=== PATIENT | male | born 1935 | race Caucasian/White ===

== ENCOUNTER 2016-12-17 07:13 | Day surgery (SDC) | payer MEDICARE, OTHER ==
[2016-12-17] VITALS (8 sets, daily range): BP systolic 97–143; BP diastolic 54–72; PULSE 66–76; RESP 16–22; TEMP 97.3–98.7; O2SAT 96–100; Ht 175.3 cm; Wt 80.3 kg
[~2016-12-17] VITALS: Ht 175.3 cm; Wt 80.3 kg
[~2016-12-17 07:13] MED LIST: ASPI325T PO; DOXE10CA2 PO; FISH1CAP59 PO; GABA-338 PO; GLUC-136 PO; LIDOCAINE 1% (10mg/ml) 2ml SDV INJ ONE; LIDOCAINE VISCOUS 2% Oral Soln 15ml UD ONE; LR 1,000 ML IV SCH; MAGN250T39 PO; MELA1TAB16 PO; MULT-669 PO; NAPR220T PO; OMEP-122 PO; PRAM1TAB3 PO; RED600CA6 PO; TEMA30CA PO
--- OUTSIDE RECORDS SUMMARY | 2016-12-17 07:17 | XMS REPORT | Continuity of Care Document ---
Author Author [facility] Organization [facility] Address Unknown Phone Unavailable Support Name Relationship Address Phone MARK PENA MD Caregiver [address] [place] [address] [place] [address] EVIE CHÁVEZ MD Caregiver [address] [place] [address] Unavailable JULIAN FIORE Caregiver [address] [place], [place] [id number] JENELLE PAUL Next Of Kin [address] [place], [place] [id number] Insurance Providers Payer Name Policy Number Subscriber Name Relationship Medicare [id number] Irene Paul 18 Self [place] [id number] Irene Paul 18 Self Advance Directives Directive Response Recorded Date/Time Advanced Directives Type Living Will DPOA for Healthcare 04/07/14 12:30am Ordered Resuscitation Status Full Code 04/06/14 11:09pm Resuscitation Documents on File No 04/07/14 12:30am Chief Complaint and Reason for Visit Chief Complaint 2309-PULMONARY EMBOLISM-IN PT-ROOM 145 Reason for Visit Acute pulmonary embolism History of prostate cancer OA (osteoarthritis) Allergic rhinitis S/P foot surgery GERD (gastroesophageal reflux disease) Problems Medical Problems Problem Onset Date Status Acute pulmonary embolism Unknown Active History of prostate cancer Unknown Resolved OA (osteoarthritis) Unknown Active Allergic rhinitis Unknown Active GERD (gastroesophageal reflux disease) Unknown Active Surgical Problems Problem Onset Date Recorded Date/Time Status S/P foot surgery Unknown 04/07/2014 8:43am Active Medications Medication Dose Route Sig Days/Qty Instructions Order Date Discontinued Date Status Naproxen Sodium 220 Mg PO DAILY 03/29/10 04/09/14 Discontinued [zyrtec ] Tab PO DAILY 03/29/10 Active Aspirin 1 Tab PO DAILY 04/06/14 04/09/14 Discontinued Omeprazole 1 Tab PO BEDTIME 04/06/14 Active Hydrocodone/Acetaminophen 1-2 Tab PO Every 6 Hours PRN PAIN 04/06/14 Active Glucosamine Sulfate 2Kcl 04/06/14 Active Multivitamin 04/06/14 Active Melatonin 04/06/14 Active Red Yeast Rice 04/06/14 Active Enoxaparin Sodium 122 Mg SQ DAILY 5 Days 04/09/14 Active Warfarin Sodium 5 Mg PO DAILY For Pulmonary Emboli 30 Qty 04/09/14 Active Social History Social History Problem Response Recorded Date/Time Smoking Status Never smoker 04/07/2014 12:34am Hx Substance Use No 04/06/2014 8:35pm Hx Alcohol Use No 04/06/2014 8:35pm Has the pt used tobacco in the last 12 months No 04/07/2014 12:34am Hospital Discharge Instructions Instructions: Care Instructions: Reason for Hospitalization: right TKA I was in the hospital because (patient own words): "I HAD A STROKE" Discharge Diet: Regualr Discharge Activity: Walk regularly. Try to walk a little farther each day. This will help prevent many of the complications that are possible after a total joint replacement. This would include things like pneumonia, blood clots and constipation. Follow Up Appointments: [address] Kunz. Please call [phone] to confirm appointment. Patient Instructions: Swelling 1.Elevate operative extremity above the level of your heart if possible. This will facilitate the movement of fluid back into your body. 2.Do not sit for more than 1 hour at a time. 3.Ice can be used as tolderated - do not apply directly to skin and only leave on for 20 minutes at a time. Constipation 1.Take a stool softener (Colace, Sennokot-S,etc) as needed to prevent constipation 2.Wean yourself off narcotics as soon as possible. Blood Clot prevention 1.Take your anticoagulant (Aspirin, Coumadin, Lovenox,etc) as directed Driving 1.May drive in 4 weeks if you had your LEFT extremity operated on. 2.May drive in 6 weeks if you had your RIGHT extremity operated on. Wound/Incision Care: Tegaderm 1.Clear dressing is to remain in place for 2 weeks. 2.Do not pick at it or scrub it while showering. 3.If the dressing begins to pull up, secure it with 4x4 gauze pad and tape. 4.You may shower; however, do not submerge yourself in water until the incision is completely healed. Mepilex 1.Dressing to remain in place until your follow up appointment. 2.If this dressing starts peeling up slightly, it may be reinforced, if it peels excessively, notify your surgeon's office. 3.You may shower with the dressing in place, but do not submerge in water 4.Do not allow water to seep under the dressing, if it should seep under, remove the dressing and notify your surgeon. Notify Physician If: Call your Surgeon if you have: 1.Chest pain, difficulty breathing, fever>100.5 degrees, chills, heart rate >100, confusion, or persistent nausea/vomitting. 2.Severe pain, swelling, redness, or warmth in either of your legs. 3.During office hours, call [phone] 4. After hours, please call [facility] at [phone], and have the operator control room page your Surgeon IN THE EVENT OF AN EMERGENCY, seek medical care at the nearest Emergency Room Condition at time of discharge: Good Care Plan Discharge Patient: Goal: Understand discharge plan Patient Instructions: see patient instructions Patient Instructions: see patient instructions Plan of Care Discharge Date 04/09/14 5:30pm Disposition 01 DISCHARGED HOME, SELF-CARE Prescriptions See Medications Section Functional Status Query Response Date Recorded Physical Hygiene Self April 06, 2014 8:35pm Disabilities None April 06, 2014 11:52pm Devices Used Glasses April 06, 2014 11:52pm Dressing Self April 06, 2014 8:35pm Ambulation Self April 06, 2014 8:35pm Diet Self April 06, 2014 8:35pm Mental Status Alert April 06, 2014 11:11pm Disabilities None April 06, 2014 11:52pm Devices Used Glasses April 06, 2014 11:52pm Physical Hygiene Self April 06, 2014 8:35pm Dressing Self April 06, 2014 8:35pm Ambulation Self April 06, 2014 8:35pm Diet Self April 06, 2014 8:35pm Allergies, Adverse Reactions, Alerts Allergen Type Severity Reaction Status Last Updated No Known Allergies Active 04/06/14 Immunizations Name Given Type Hx Influenza Vaccination Y June 2013 Historical Hx Pneumococcal Vaccination Y 04/08/14 Historical Hx Influenza Vaccination Y June 2013 Historical pneumococcal polysaccharide PPV23 04/08/14 Administered pneumococcal polysaccharide PPV23 04/08/14 Administered Vital Signs Acute Vital Signs Vital Response Date/Time Temperature (Fahrenheit) 97.9 deg F (96.8 - 99.1) Temperature (Calculated Celsius) 36.25774 degrees C (36.0 - 37.3) Temperature Source Oral Pulse Rate (adult) 65 bpm (60 - 100) Respiratory Rate 20 breaths/min (10 - 20) O2 Sat by Pulse Oximetry 94 % (90 - 100) Oxygen Delivery Method Room Air Blood Pressure 136/84 mm Hg Blood Pressure Source Automatic Cuff Height 5 ft 9 in Weight 177 lb Body Mass Index 26.0 kg/m^2 Results Test Source Date Result Interp. Ref. Range Comments Activated Partial Thromboplast Time April 06, 2014 8:40pm 30.1 SEC N 24 -36 Alanine Aminotransferase (ALT/SGPT) April 06, 2014 8:40pm 30 U/L N 21- 72 Albumin April 06, 2014 8:40pm 3.9 G/DL N 3.5-5.0 Albumin/Globulin Ratio April 06, 2014 8:40pm 1.4 RATIO N 1.1-2.2 Alkaline Phosphatase April 06, 2014 8:40pm 107 U/L N 38-126 Anion Gap April 09, 2014 4:40am 10 MEQ/L N 5-15 Aspartate Amino Transf (AST/SGOT) April 06, 2014 8:40pm 22 U/L N 17-59 BUN/Creatinine Ratio April 09, 2014 4:40am 17 RATIO N 6-26 Basophils # (Auto) April 09, 2014 4:40am 0.0 T/MM3 N 0-0.2 Basophils (%) (Auto) April 09, 2014 4:40am 0.1 % N 0-2 Blood Urea Nitrogen April 09, 2014 4:40am 17.0 MG/DL N 9-20 Calcium Level April 09, 2014 4:40am 9.4 MG/DL N 8.4-10.2 Calculated Osmolality April 09, 2014 4:40am 271 MOSM/KG N 261-280 Carbon Dioxide Level April 09, 2014 4:40am 26 MEQ/L N 22-30 Chemistry Specimen Hemolysis April 09, 2014 4:40am < 15 0-25 0-25: No Hemolysis.26-70: Slight Hemolysis - can falsely elevate K and Urine Protein. 71-285: Moderate Hemolysis - can falsely elevate K, Troponin I, CA 19-9, PTH, CSF GLucose, and Urine Protein, and can falsely decrease Phenytoin. 286-999: Gross Hemolysis - can falsely elevate K, Troponin I, CA 19-9, PTH, CSF Glucose, and Urine Protine, and can falsely decrease Phenytoin. Recommend specimen recollection. Chloride Level April 09, 2014 4:40am 104 MEQ/L N 98-107 Creatinine April 09, 2014 4:40am 1.0 MG/DL N 0.8-1.5 D-Dimer April 06, 2014 8:40pm 486 NG/ML H 0-224 <224 NG/ML= PRESUMPTIVE NEGATIVE FOR PE OR DVT>224 NG/ML=ADDITIONAL EVALUATION FOR PE OR DVT RECOMMENDED Eosinophils # (Auto) April 09, 2014 4:40am 0.5 T/MM3 N 0-0.5 Eosinophils (%) (Auto) April 09, 2014 4:40am 6.4 % H 0-4 Globulin April 06, 2014 8:40pm 2.8 G/DL N 2.4-3.6 Glomerular Filtration Rate Calc April 09, 2014 4:40am 73 - Glucose Level April 09, 2014 4:40am 102 MG/DL N 75-110 Hematocrit April 09, 2014 4:40am 40.1 % L 41-53 Hemoglobin April 09, 2014 4:40am 13.6 GM/DL N 13.5-17.5 Icterus Index April 09, 2014 4:40am < 2 0-7 Immature Granulocyte # (Auto) April 09, 2014 4:40am 0.02 T/MM3 N 0.00- 0.03 Immature Granulocyte % (Auto) April 09, 2014 4:40am 0.2 % N 0.0-0.5 Lipase April 06, 2014 8:40pm 51 U/L N 23-300 Lymphocytes # (Auto) April 09, 2014 4:40am 2.5 T/MM3 N 1-4.8 Lymphocytes (%) (Auto) April 09, 2014 4:40am 29.4 % N 23-45 Mean Corpuscular Hemoglobin April 09, 2014 4:40am 30.9 UUG N 26-34 Mean Corpuscular Hemoglobin Concent April 09, 2014 4:40am 33.9 GM/DL N 31-37 Mean Corpuscular Volume April 09, 2014 4:40am 91.1 UM3 N 80-100 Mean Platelet Volume April 09, 2014 4:40am 10.7 UM3 N 9.4-12.4 Monocytes # (Auto) April 09, 2014 4:40am 0.9 T/MM3 H 0-0.8 Monocytes (%) (Auto) April 09, 2014 4:40am 11.0 % H 0-9.0 Neutrophils # (Auto) April 09, 2014 4:40am 4.4 T/MM3 N 1.8-7.7 Neutrophils (%) (Auto) April 09, 2014 4:40am 52.9 % N 33-66 Platelet Count April 09, 2014 4:40am 227 T/MM3 N 130-400 Potassium Level April 09, 2014 4:40am 4.1 MEQ/L N 3.6-5 Prealbumin April 07, 2014 4:41am 15.4 MG/DL L 17.6-36.0 Prothromb Time International Ratio April 09, 2014 4:40am 1.28 H 0.81- 1.09 THERAPUTIC RANGE=2.00-3.00 FOR ANTI-THROMBOSIS THERAPUTIC RANGE=2.50- 3.50 FOR IMPLANTED VALVE RDW Standard Deviation April 09, 2014 4:40am 40.3 FL N 36.9-50.2 Red Blood Count April 09, 2014 4:40am 4.40 M/MM3 L 4.50-5.90 Sodium Level April 09, 2014 4:40am 140 MEQ/L N 134-144 Thyroid Stimulating Hormone (TSH) April 07, 2014 4:41am 1.02 MIU/L N 0.47-4.68 COMMENT mandi Total Bilirubin April 06, 2014 8:40pm 0.90 MG/DL N 0.20-1.30 Total Protein April 06, 2014 8:40pm 6.7 G/DL N 6.3-8.2 Troponin I April 06, 2014 8:40pm < 0.012 ng/ml 0-0.12 Turbidity April 09, 2014 4:40am < 20 0-20 Vitamin B12 Level April 07, 2014 4:41am 355 PG/ML N 239-931 White Blood Count April 09, 2014 4:40am 8.4 T/MM3 N 4.5-11.0 Helicobacter pylori Rapid Urease Gastric Biopsy March 29, 2010 8:20am Name: IRENE PAUL Unit #: [id number] : 1935 Sex: M Loc / Svc: MED DOS: 04/06/14 Signed Report #: [id number] DIAGNOSTIC IMAGING REPORT TYPE OF EXAM: CHEST, PA & LATERAL Dictated By: LEVAR SHEPHERD MD INDICATION: ITS.REASON: F/U pulm edema COMPARISON: 04/05/14 CHEST, PA LATERAL: Normal heart size. Infiltrates and effusions have largely cleared since the prior CXR. No evidence of new infiltrate or pneumothorax. IMPRESSION: Suspected CHF has resolved. . Procedures No known history of procedures. Encounters Encounter Location Date/Time Discharged Inpatient [facility] 04/06/14 11:09pm Recent Diagnosis Acute pulmonary embolism History of prostate cancer OA (osteoarthritis) Allergic rhinitis GERD (gastroesophageal reflux disease)
--- OUTSIDE RECORDS SUMMARY | 2016-12-17 07:17 | XMS REPORT | Continuity of Care Document ---
Author Author [facility] Organization [facility] Address Unknown Phone Unavailable Support Name Relationship Address Phone MARK PENA MD Caregiver [address] [place] [address] [place] [address] JULIAN FIORE Caregiver [address] [place] [address] JENELLE PAUL Next Of Kin [address] [place] [address] Insurance Providers Payer Name Policy Number Subscriber Name Relationship Medicare [id number] Irene Paul 20 Self [place] [id number] Irene Paul 20 Self Advance Directives Directive Response Recorded Date/Time Advanced Directives Type Living Will DPOA for Healthcare 04/10/14 10:48am Resuscitation Documents on File No 04/10/14 10:48am Problems Medical Problems Problem Onset Date Status [...] Active Glucosamine Sulfate 2Kcl 04/06/14 Active Multivitamin PO BEDTIME 04/06/14 Active Melatonin PO BEDTIME 04/06/14 Active Red Yeast Rice 04/06/14 Active Enoxaparin Sodium 122 Mg SQ DAILY 5 Days 04/09/14 Active Warfarin Sodium 5 Mg PO DAILY For Pulmonary Emboli 30 Qty 08/22/14 Active Social History Social History Problem Response Recorded Date/Time Smoking Status Never smoker 04/10/2014 10:51am Hx Substance Use No 04/06/2014 8:35pm Hx Alcohol Use No 04/06/2014 8:35pm Has the pt used tobacco in the last 12 months No 04/10/2014 10:51am Hospital Discharge Instructions Instructions: Care Instructions: Reason for Hospitalization: PE I was in the hospital because (patient own words): "I HAD BREATHING PROBLEMS" Discharge Diet: diabetic cardiac Discharge Activity: as tolerated Follow Up Appointments: daily INR checks at [facility] until INR >2, see Dr Lee on Saturday--please make appt Patient Instructions: obtain INR at [facility] daily until INR > 2.0, if INR is less than 2 than take the lovenox shot. Stop the lovenox after INR is more than 2. If you have uncontrollable bleeding present to the ED for evaluation. Should your symptoms return you could contact Dr Lee through the office or return to the ED for emergent evaluation Condition at time of discharge: Good Condition at time of discharge: Good KEEP PT ON CONTACT PRECAUTIONS - VRE IN URINE Condition at time of discharge: Good Understand discharge plan Maximum functional status Patient Instructions: see patient instructions rate >100, confusion, or persistent nausea/vomitting. 2.Severe pain, swelling, redness, or warmth in either of your legs. 3.During office hours, call [phone] 4. After hours, please call [facility] at [phone], and have the cloth winder machine operator page your Surgeon IN THE EVENT OF AN EMERGENCY, seek medical care at the nearest Emergency Room Condition at time of discharge: Good Plan of Care Discharge Date 04/09/14 5:30pm Disposition 01 DISCHARGED HOME, SELF-CARE Prescriptions See Medications Section Functional Status Query Response Date Recorded Physical Hygiene Self April 06, 2014 8:35pm Physical Hygiene Self April 06, 2014 8:35pm Allergies, Adverse Reactions, Alerts Allergen Type Severity Reaction Status Last Updated No Known Allergies Active 04/10/14 Immunizations Name Given Type Hx Influenza Vaccination Y June 2013 Historical Hx Pneumococcal Vaccination Y 04/08/14 Historical Hx Influenza Vaccination Y June 2013 Historical Vital Signs Acute Vital Signs Vital Response Date/Time Temperature (Fahrenheit) 97.1 deg F (96.8 - 99.1) Temperature (Calculated Celsius) 36.25427 degrees C (36.0 - 37.3) Temperature Source Temporal Pulse Rate (adult) 78 bpm (60 - 100) Respiratory Rate 16 breaths/min (10 - 20) O2 Sat by Pulse Oximetry 97 % (90 - 100) Oxygen Delivery Method Room Air Blood Pressure 132/75 mm Hg Blood Pressure Source Automatic Cuff [...] 09, 2014 4:40am 26 MEQ/L N 22-30 Chloride Level April 09, 2014 4:40am 104 [...] 06, 2014 8:40pm 2.8 G/DL N 2.4-3.6 Glucose Level April 09, 2014 4:40am 102 MG/DL N 75-110 Hematocrit April 09, 2014 4:40am 40.1 % L 41-53 Hemoglobin April 09, 2014 4:40am 13.6 GM/DL N 13.5-17.5 Lipase April 06, 2014 8:40pm 51 U/L [...] 06, 2014 8:40pm < 0.012 ng/ml 0-0.12 Vitamin B12 Level April 07, 2014 4:41am 355 PG/ML N 239-931 White Blood Count April 09, 2014 4:40am 8.4 T/MM3 N 4.5-11.0 Chemistry Specimen Hemolysis April 09, 2014 4:40am [...] can falsely decrease Phenytoin. Recommend specimen recollection. Turbidity April 09, 2014 4:40am < 20 0-20 Glomerular Filtration Rate Calc April 09, 2014 4:40am 73 - Immature Granulocyte # (Auto) April 09, 2014 4:40am 0.02 T/MM3 N 0.00- 0.03 Immature Granulocyte % (Auto) April 09, 2014 4:40am 0.2 % N 0.0-0.5 Icterus Index April 09, 2014 4:40am < 2 0-7 Helicobacter pylori Rapid Urease Gastric Biopsy March 29, 2010 8:20am Name: IRENE PAUL Unit #: [id number] : 1935 Sex: M Loc / Svc: MED DOS: 04/06/14 Signed Report #: [id number] DIAGNOSTIC IMAGING REPORT TYPE OF EXAM: CHEST, PA & LATERAL Dictated By: LEVAR SHEPHERD MD INDICATION: ITS.REASON: F/U pulm edema COMPARISON: 04/05/14 CHEST, PA LATERAL: Normal heart size. Infiltrates and effusions have largely cleared since the prior CXR. No evidence of new infiltrate or pneumothorax. IMPRESSION: Suspected CHF has resolved. . Procedures No known history of procedures. Encounters Encounter Location Date/Time Discharged Recurring [facility] 04/12/14 9:20am Discharged Inpatient [facility] 04/06/14 11:09pm
--- OUTSIDE RECORDS SUMMARY | 2016-12-17 07:17 | XMS REPORT | Continuity of Care Document ---
Author Author [facility] Organization [facility] Address Unknown Phone Unavailable Support Name Relationship Address Phone CASSIDY BO MD Caregiver [address] [place] [address] [place] [address] Unavailable JULIAN FIORE Caregiver [address] [place] [address] Unavailable JENELLE PAUL Next Of Kin [address] [place] [address] Insurance Providers Guarantor Irene Paul Address [address] [place] [address] Email [email or web address] Payer Medicare Policy Number [id number] Subscriber's Name Irene Paul Relationship 18 Self Effective Date 02 Payer [place] Policy Number [id number] Subscriber's Name Irene Paul Relationship 18 Self Group Number PLANF Effective Date 02 Payer Auto A Insurance Subscriber's Name Irene Paul Relationship 18 Self Chief Complaint and Reason for Visit Chief Complaint Altered Mental Status Reason for Visit Concussion [id number] Problems Active Problems Medical Problem Onset Date Status Acute cerebrovascular accident Unknown Acute Acute pulmonary embolism Unknown Acute Allergic rhinitis Unknown Chronic Carpal tunnel syndrome on both sides Unknown Chronic Cerebral vascular accident Unknown Acute GERD (gastroesophageal reflux disease) Unknown Chronic History of prostate cancer Unknown Resolved History of pulmonary embolism Unknown Resolved OA (osteoarthritis) Unknown Chronic PVCs (premature ventricular contractions) Unknown Chronic Visual disturbance Unknown Acute Surgical Problem Onset Date Status S/P foot surgery Unknown Acute Past Problems Medical Problem Onset Date Concussion Unknown Memory change Unknown Medications Current Home Medications Medication Dose Units Route Directions Days Qty Instructions Start Date Acetaminophen 500 Mg Tablet 2 Tab Oral As Needed Do not exceed 3, 200 mg of acetaminophen in a 24 hours period. 06/21/15 Aspirin 325 Mg Tablet 325 Mg Oral Give With Breakfast for Stroke 30 Days 06/22/15 Cetirizine Hcl 10 Mg Tablet 1 Tab Oral Daily 01/03/16 Fish Oil/Dha/Epa (Fish Oil 1,200 Mg Fish Oil) 1 Each Capsule 1,200 Mg Oral Daily 01/03/16 Gluc/Alin-Msm#1/Vit C/Benny/Bor (Cjdqdub-Jpfim-Dwr Complex Cplt) 1 Each Tablet 1 Oral Twice A Day 01/03/16 Magnesium Oxide 400 Mg Tablet 1 Tab Oral Bedtime 30 Tablet 01/03/16 Melatonin 3 Mg Tablet 1 Tab Oral Bedtime 30 Tablet 01/03/16 Multivitamin With Minerals (Multiple Vitamin) 1 Each Tablet 1 Tab Oral Daily 12/17/14 Naproxen Sodium (Naproxen 220MG) 220 Mg Tablet 440 Mg Oral Twice Daily With Meals 01/03/16 Omeprazole 20 Mg Tablet.dr 20 Mg Oral Before Breakfast Take 1 tablet , by mouth, one time a day with breakfast. 12/17/14 Oxycodone Hcl/Acetaminophen (Percocet 5-325 Mg Tablet) 1 Each Tablet Unknown Dose Oral Every 4 Hours as needed for Pain Take 1 tablet, by mouth, every 4 hours as needed for pain. 06/21/15 Pramipexole Di-Hcl (Mirapex) 1 Mg Tablet 1 Mg Oral Bedtime Red Yeast Rice 600 Mg Capsule 1 Oral Daily 01/03/16 Zolpidem Tartrate 10 Mg Tablet 10 Mg Oral Bedtime Take 1 tablet, by mouth, 1 time a day (at BEDTIME). 01/03/16 Past Home Medications Medication Directions Ordered Status Aspirin (Aspir 81) 81 Mg Tablet.dr, 1 Tab Oral Daily 04/06/14 Discontinued Doxepin Hcl 10 Mg Capsule, 1 Cap Oral Bedtime 12/17/14 Discontinued Naproxen Sodium (Aleve) 220 Mg Tablet, 440 Mg Oral Daily 12/17/14 Discontinued Naproxen Sodium (Aleve) 220 Mg Tablet, 220 Mg Oral Daily 03/29/10 Discontinued Social History Social History Problem Response Recorded Date/Time Onset Date Status Hx Substance Use No 01/03/2016 8:56am Not Applicable Not Applicable Hx Alcohol Use No 01/03/2016 8:56am Not Applicable Not Applicable Has the pt used tobacco in the last 12 months No 06/21/2015 1:43am Not Applicable Not Applicable Tobacco Usage none 06/21/2015 8:44am Not Applicable Not Applicable Query Response Start Date Stop Date Smoking Status Never smoker Hospital Discharge Instructions No hospital discharge instructions. Plan of Care Discharge Date 01/03/16 10:18am Disposition 01 DISCHARGED HOME, SELF-CARE Condition at Discharge Improved Instructions/Education Provided Concussion Prescriptions See Medication Section Referrals JULIAN FIORE Order Date: 3 Days Address: [place] [address] Note: Care Plan and Goals Physician Care Plan Problem: concussion, fatigue Goal: Follow up with primary care provider Instructions: Take medications and follow care plan as discussed/written Functional Status No functional status results. Allergies, Adverse Reactions, Alerts No known allergies. Immunizations Query Response on File Recorded Date/Time Hx Influenza Vaccination Y 05/201606/21/15 1:43am Hx Pneumococcal Vaccination Y 04/08/14 06/21/15 1:43am Hx Influenza Vaccination Y 05/201606/21/15 1:43am Influenza Vaccine Hx 05/26/15 01/03/16 8:56am Vital Signs Acute Vital Signs Vital Response Date/Time Temperature (Fahrenheit) 98.0 deg F (96.8 - 99.1) 01/03/2016 10:12am Temperature (Calculated Celsius) 36.48570 degrees C (36.0 - 37.3) 01/03/2016 10:12am Pulse Rate (adult) 68 bpm (60 - 100) 01/03/2016 10:12am Respiratory Rate 16 breaths/min (10 - 20) 01/03/2016 10:12am O2 Sat by Pulse Oximetry 99 % (90 - 100) 01/03/2016 10:12am Blood Pressure 144/72 mm Hg 01/03/2016 10:12am Height (Feet) 5 feet 01/03/2016 8:56am Height (Inches) 9.00 inches 01/03/2016 8:56am Weight (Kilograms) 83.800 kg 01/03/2016 8:56am Body Mass Index (BMI) 27.0 01/03/2016 8:56am Results Name: IRENE PAUL Unit #: [id number] : 1935 Sex: M Admit Date: Loc / Svc: ED Discharge Date: DIAGNOSTIC IMAGING REPORT Report #: [id number] [facility] PRECIOUS [place] Indication: ITS.REASON: s/p accident--balance issues, mild confusion PROCEDURE: CT HEAD W/O CONTRAST: Encounter: Initial Comparison: Head CT dated June 20, 2015 Technique: Axial CT images through the head were performed without contrast. FINDINGS: The ventricles are of normal size, shape, and configuration for the patient's age. There is no evidence of acute intracranial hemorrhage, midline displacement, or mass effect. There are scattered areas of low attenuation in the white matter which most likely represent changes of chronic microvascular ischemia. The CT attenuation of the brain parenchyma is otherwise normal within the cerebellum, brain stem, and cerebral hemispheres. The tympanic cavities and mastoid air cells are free of appreciable disease. There are no definite fractures of the skull base, calvarium, or visualized portion of the midface. IMPRESSION: No CT evidence of acute traumatic intracranial injury. . Procedures No known history of procedures. Encounters Encounter Location Arrival/Admit Date Discharge/Depart Date Attending Provider Departed Emergency Room [facility] 01/03/16 8:54am 01/03/16 10: 18am CASSIDY BO MD Recent Diagnosis
--- NOTE | 2016-12-17 07:33 | ANESPREOP ---
Anesthesia Record Date and Time DATE: 12/17/16 TIME: 07:32 Proposed Surgical Procedure EGD & COLONOSCOPY NPO since: 2199 Allergies: Coded Allergies: No Known Allergies (Verified , 01/03/16) Ht/Wt/BMI Height: 5 ' 9.00 " Weight: kg BMI: kg/m2 Medications Inpatient Medications Current Medications Medications (Trade) Dose Ordered Sig/Nikia Start Time Stop Time Status Last Admin Dose Admin Lactated Ringer's (Lactated Ringers) 1,000 ml @ 50 mls/hr Q20H 12/17/16 07:00 Aspirin (Aspirin) 325 Mg Tablet, 325 MG PO WB Last Taken: on 12/14/16 Doxepin HCl (Doxepin HCl) 10 Mg Capsule, 1 CAP PO HS, (Reported) Fish Oil/Dha/Epa (Fish Oil 1,200 mg Fish Oil) 1 Each Capsule, 1,200 MG PO DAILY, (Reported) Last Taken: on 12/14/16 Gabapentin (Gabapentin) 300 Mg Capsule, 1 CAP PO DAILY, (Reported) Gluc/Alin-MSM#1/Vit C/Benny/Bor (Rtvxmne-Mrsbf-SIY Complex Cplt) 1 Each Tablet, 1 PO BID, (Reported) Magnesium Oxide (Magnesium Oxide) 250 Mg Tablet, 250 MG PO HS, (Reported) Melatonin/Pyridoxine (Melatonin 5 mg Tablet) 1 Each Tablet, 5 MG PO HS, ( Reported) Take 1 tablet, by mouth, one time a day (at bedtime). Multivitamin with Minerals (Multiple Vitamin) 1 Each Tablet, 1 TAB PO DAILY, ( Reported) Naproxen Sodium (Naproxen 220mg) 220 Mg Tablet, 440 MG PO BIDWM, (Reported) Omeprazole (Omeprazole) 20 Mg Tablet.dr, 40 MG PO ACB, (Reported) Take 1 tablet, by mouth, one time a day with breakfast. Pramipexole Di-HCl (Mirapex) 1 Mg Tablet, 1 MG PO HS, (Reported) Red Yeast Rice (Red Yeast Rice) 600 Mg Capsule, 1 PO DAILY, (Reported) Temazepam (Temazepam) 30 Mg Capsule, 1 CAP PO HS, (Reported) Discontinued Medications Magnesium Oxide (Magnesium Oxide) 400 Mg Tablet, 1 TAB PO HS, (Reported) Melatonin (Melatonin) 3 Mg Tablet, 1 TAB PO HS, (Reported) Currently on Beta Víctor: No Medical/Surgical History Anesthesia PMH: Reports: Arthritis (arm, wrist), CVA/Stroke/TIA (2014), Cancer (PROSTATE - TREATED), Cardiac Arrythmia (PVC'S), Deep Vein Thrombosis ( PE 2013-APR), Reflux Smoking Status: Never smoker Use Chewing Tobacco?: No Second Hand Exposure: No Substance Use Type: does not use Alcohol Intake: none Past Surgical History Orthopedic Surgeries: Yes - RCR, R SHOULDER, R CTR Abdominal Surgeries: Yes - HERNIA REPAIR X3, APPY Genitourinary Surgeries: No Cardiac Surgeries: No Endocrine Surgeries: No Reproductive Surgeries: No Neurological Surgeries: No Ear Surgeries: No Nose Surgeries: No Throat Surgeries: No Other Surgeries: Yes - COLONOSCOPYS,EGD Anesthesia Adverse Reactions: FOUND none Family Hx of Anesthesia Advers: none Hx of Motion Sickness: No Physical Exam Respiratory: Bilat breath sounds equal, Lungs clear Cardiovascular: FOUND Regular rate, rhythm Airway Assessment Mallampati Score: I TMD: 3 Fingerbreadths Neck Extension: Fair Overall Assessment: No Airway Concerns ASA: 3 Plan Anesthesia Plan: TIVA, GETA Discussion Discussed risks/options/alternatives of anesthesia and questions answered. Patient consents. Nursing pain assessment noted. Attestation Statement Prior to the delivery of any anesthetic medication, I examined the patient, developed the plan, obtained the patient's consent and discussed the risk and benefits of the procedure with the patient/guardian. MANE WOODALL CRNA December 17, 2016 07:32
[2016-12-17] MEDS ORDERED: PROPOFOL 500mg 0 ML IV ONE (08:17)
[2016-12-17] MEDS ORDERED: BENZOCAINE 20% Top. Anesth. SPRAY UD ONE (08:42)
[2016-12-17] MEDS ORDERED: SIMETHICONE 67 MG/ML ORAL DROPS ONE (08:52)
[2016-12-17] MEDS ORDERED: PROPOFOL 500mg 50 ML IV ONE (08:52)
--- NOTE | 2016-12-17 09:32 | ANESPO ---
Post-Op Note Date 12/17/16 Time: 09:31 Status Pt Participated in Evaluation: Pt participated in person Vital Signs Date Time Temp Pulse Resp B/P Pulse Ox O2 Delivery O2 Flow Rate FiO2 12/17/16 07:34 98.3 73 18 128/72 100 Room Air Respiratory Function: Airway patent, Regular respirations Cardiovascular Function: Regular pulse Pain Level Intensity: 0 Unable to Assess Pain Due To: Medicated/Sleeping Hydration: IV infusing Complications during Recovery None apparent Follow-Up Instructions Instructions Per Surgeon MANE WOODALL CRNA December 17, 2016 09:32
[2016-12-17] MEDS ORDERED: CEFTRIAXONE I.V. (ER USE ONLY) 1 G in NORMAL SALINE 100 ML IV ONE (10:00)
--- NOTE | 2016-12-17 11:18 | OPNOTEF ---
DATE OF OPERATION 12/17/2016 PREOPERATIVE DIAGNOSIS Anemia and melena. POSTOPERATIVE DIAGNOSIS Mild gastritis, antrum. OPERATION Esophagogastroduodenoscopy with biopsy from the antrum for GARY testing. SURGEON Isaac Vuong M.D. DESCRIPTION OF OPERATIVE PROCEDURE The patient was placed in the left lateral position. The gastroscope was introduced without difficulty under IV anesthesia with the scope passed through the esophagus into the second portion of the duodenum. The duodenal mucosa appeared normal throughout without evidence of hemorrhage, mass lesions, ulcerations or polyps. The scope was pulled back with no inflammatory changes noted throughout the duodenum or pyloric channel. No mass lesions identified. The scope was pulled back into the stomach with the antrum showing very mild erythema. Biopsy was taken for GARY testing from the antrum. The stomach proper showed normal rugae with no abnormalities. The scope was retroflexed and the cardia and fundus visualized with no significant lesions noted. The stomach was suctioned, the scope pulled back into the esophagus with the EG junction noted at 41 cm. It was well demarcated without significant inflammatory changes, erosions or ulcerations. No mass lesions were identified. The patient had no stenosis or narrowing of the esophagus. The esophageal mucosa appeared normal throughout with the posterior pharynx and vocal cords clear. The scope was removed with patient tolerating the procedure well. He was stable post esophagogastroduodenoscopy. LAURA
--- NOTE | 2016-12-17 14:13 | OPNOTEF ---
[facility] [place] DATE: 12/17/2016 PREOPERATIVE DIAGNOSIS: Anemia with melena. POSTOPERATIVE DIAGNOSIS: Moderately severe diverticular disease in the sigmoid colon. PROCEDURE: Colonoscopy. SURGEON: Isaac Vuong MD PROCEDURE NOTE: The patient was placed in left lateral position. After a benign digital rectal exam, the colonoscope was inserted and advanced to the cecum with cecal landmarks identified. The cecum, ascending colon, transverse colon and sigmoid showed no evidence of mass lesions, hemorrhage or inflammatory changes. He did have multiple diverticula in the sigmoid colon without evidence of active or old bleeding. The rectum and anus were unremarkable. The colon was suctioned and scope removed with patient tolerating procedure well. FINAL DIAGNOSES 1. Anemia. 2. Suspected GI bleeding. 3. Diverticular disease, moderately severe, in the sigmoid colon. [facility]
== END 2016-12-17 11:10 | disposition home or self-care (01) ==
LOC: NSC 07:13
DX: K29.60 Other gastritis without bleeding (principal); D64.9 Anemia, unspecified; K62.5 Hemorrhage of anus and rectum; K57.30 Diverticulosis of large intestine without perforation or abscess without bleeding; Z79.1 Long term (current) use of non-steroidal anti-inflammatories (NSAID); Z79.82 Long term (current) use of aspirin; Z79.899 Other long term (current) drug therapy
CPT/HCPCS: 43239; 45378; 87081; A9270; J0696; J7050; J7120